=== PATIENT | male | born 1995 | race Caucasian/White ===

== ENCOUNTER 2024-02-15 17:18 | Inpatient (IN) | payer OTHER ==
--- NOTE | 2024-02-15 17:40 | ED ---
URI HPI - General Chief Complaint: Upper Respiratory Infection Stated Complaint: Cough Time Seen by Provider: 02/15/24 17:29 Source: patient, RN notes reviewed Mode of arrival: ambulatory Limitations: no limitations - History of Present Illness Initial Comments: This is a 28-year-old male who presents to the emergency department for a cough. States that he has had a cough since November with sputum production. About a month after he developed the cough, he started to develop pain in the right lower rib cage. This is only present when he moves, coughs, or sneezes. Denies any chest pain or shortness of breath. He went to check into [facility] today for heroin use and they advised he come to the emergency department for evaluation before proceeding with the rest of his intake. The sputum is described as brown with a very foul taste. MD Complaint: cough - Related Data Home Medications Medication Instructions Recorded Confirmed No Known Home Medications 02/15/24 02/15/24 Allergies Allergy/AdvReac Type Severity Reaction Status Date / Time No Known Allergies Allergy Verified 02/15/24 20:10 Review of Systems ROS Statement: Those systems with pertinent positive or pertinent negative responses have been documented in the HPI. ROS Other: All systems not noted in ROS Statement are negative. Past Medical History Additional Past Medical History / Comment(s): kidney stones Past Surgical History: No Surgical Hx Reported Past Drug Use History: Heroin General Exam Limitations: no limitations General appearance: alert, in no apparent distress Head exam: Present: atraumatic, normocephalic, normal inspection Respiratory exam: Present: normal lung sounds bilaterally. Absent: respiratory distress, wheezes, rales, rhonchi, stridor, chest wall tenderness Cardiovascular Exam: Present: regular rate, normal rhythm, normal heart sounds. Absent: systolic murmur, diastolic murmur, rubs, gallop, clicks Neurological exam: Present: alert, oriented X3, CN II-XII intact Psychiatric exam: Present: normal affect, normal mood Skin exam: Present: warm, dry, intact, normal color. Absent: rash Course Vital Signs 02/15/24 02/15/24 17:22 18:38 Temperature 98.2 F Pulse Rate 90 93 Respiratory 20 18 Rate Blood Pressure 137/79 130/93 O2 Sat by Pulse 98 99 Oximetry Medical Decision Making - Medical Decision Making This is a 28 year old male who presents to the emergency department for a cough. Was pt. sent in by a medical professional or institution? @ -[facility] Did you speak to anyone other than the patient for history? @ -No Did you review nursing and triage notes? @ -Yes, and I agree, it is accurate with regards to the patient's symptoms. Were old charts reviewed? @ -No Differential Diagnosis? @ -Differential Cough: Influenza, Covid, RSV, croup, allergic rhinitis, GERD, pneumonia, bronchitis, COPD, viral pharyngitis, streptococcal pharyngitis, this is not meant to be an all-inclusive list. EKG interpreted by me (3pts min.)? @ -Ordered, pending at admission X-rays interpreted by me (1pt min.)? @ -Chest x-ray and x-ray of the right rib cage obtained. My interpretation identifies a right lower lung opacity. CT interpreted by me (1pt min.)? @ -CT scan of the chest obtained. My interpretation identifies a right lower lobe consolidation. U/S interpreted by me (1pt. min.)? @ -Not obtained What testing was considered but not performed? (CT, X-rays, U/S, labs)? Why? @ -None What meds were considered but not given? Why? @ -None Did you discuss the management of the patient with other professionals? @ -Yes, Trip Nesbitt with [facility], who accepts the patient for admission. Did you reconcile home meds? @ -No Was smoking cessation discussed for >3mins.? @ -No Was critical care preformed (if so, how long)? @ -No Were there social determinants of health that impacted care today? How? (Homelessness, low income, unemployed, alcoholism, drug addiction, transportation, low edu. Level, literacy, decrease access to med. care, group home, rehab)? @ -Rehab, who sent the patient in for evaluation Was there de-escalation of care discussed even if they declined? (Discuss DNR or withdrawal of care, Hospice)? @ -No What co-morbidities impacted this encounter? (DM, HTN, Smoking, COPD, CAD, Ca ncer, CVA, Hep., AIDS, mental health diagnosis, sleep apnea, morbid obesity)? @ -Heroin use Was patient admitted / discharged? @ -Admitted. We initially obtained x-rays of the chest and right rib cage. This noted a right lower lung soft tissue opacity that should be further evaluated with CT imaging. There is consideration of pneumonia versus diaphragmatic hernia as well. Given these findings we proceeded with lab work and a CT scan. He was found to have leukocytosis of 15.[address] scan demonstrates a large consolidative abnormality in the medial right lower lobe with central areas of low density concerning for possible pulmonary abscess. Underlying neoplasm with necrosis cannot be excluded. Patient subsequently admitted to medicine for possible pulmonary abscess. Blood and sputum cultures ordered. He was started on vancomycin and Zosyn. Consult placed for pulmonology and infectious disease. Case discussed with ED attending Dr. Ybarra. Undiagnosed new problem with uncertain prognosis? @ -None Drug Therapy requiring intensive monitoring for toxicity (Heparin, Nitro, Insulin, Cardizem)? @ -None Were any procedures done? @ -None Diagnosis/symptom? @ -Pulmonary abscess Acute, or Chronic, or Acute on Chronic? @ -Acute Uncomplicated (without systemic symptoms) or Complicated (systemic symptoms)? @ -Uncomplicated Side effects of treatment? @ -None Exacerbation, Progression, or Severe Exacerbation] @ -Not applicable Poses a threat to life or bodily function? @ -Yes, can lead to septic shock and . - Lab Data Result diagrams: 02/15/24 18:25 02/15/24 18:25 Lab Results 02/15/24 02/15/24 02/15/24 Range/Units 17:53 18:25 18:25 WBC 15.8 H (3.8-10.6) k/uL RBC 4.40 (4.30-5.90) m/uL Hgb 12.3 L (13.0-17.5) gm/dL Hct 37.9 L (39.0-53.0) % MCV 86.2 (80.0-100.0) fL MCH 28.0 (25.0-35.0) pg MCHC 32.5 (31.0-37.0) g/dL RDW 12.8 (11.5-15.5) % Plt Count 596 H (150-450) k/uL MPV 7.0 Neutrophils % 86 % Lymphocytes % 9 % Monocytes % 4 % Eosinophils % 1 % Basophils % 0 % Neutrophils # 13.5 H (1.3-7.7) k/uL Lymphocytes # 1.4 (1.0-4.8) k/uL Monocytes # 0.6 (0-1.0) k/uL Eosinophils # 0.2 (0-0.7) k/uL Basophils # 0.0 (0-0.2) k/uL Sodium 137 (137-145) mmol/L Potassium 4.2 (3.5-5.1) mmol/L Chloride 98 (98-107) mmol/L Carbon Dioxide 30 (22-30) mmol/L Anion Gap 9 mmol/L BUN 7 L (9-20) mg/dL Creatinine 0.59 L (0.66-1.25) mg/dL Est GFR (CKD-EPI)AfAm >90 (>60 ml/min/1.73 sqM) Est GFR (CKD-EPI)NonAf >90 (>60 ml/min/1.73 sqM) Glucose 128 H (74-99) mg/dL Calcium 10.1 (8.4-10.2) mg/dL Total Bilirubin 0.4 (0.2-1.3) mg/dL AST 20 (17-59) U/L ALT 12 (4-49) U/L Alkaline Phosphatase 103 (38-126) U/L Total Protein 8.2 (6.3-8.2) g/dL Albumin 4.2 (3.5-5.0) g/dL Influenza Type A (PCR) Not Detected (Not Detectd) Influenza Type B (PCR) Not Detected (Not Detectd) RSV (PCR) Not Detected (Not Detectd) SARS-CoV-2 (PCR) Not Detected (Not Detectd) - Radiology Data Radiology results: report reviewed, image reviewed Disposition Clinical Impression: Pulmonary abscess Disposition: ADMITTED IP TO THIS HOSP
[2024-02-15] MEDS: ACETAMINOPHEN TAB 500 MG TAB PO STA (17:46)
[2024-02-15] MEDS: BENZONATATE 100 MG CAP PO STA (17:47)
[2024-02-15] MEDS: IBUPROFEN 800 MG TAB PO STA (17:47)
[2024-02-15] MEDS: LIDOCAINE 4% PATCH TOPICAL ONE (17:49)
--- NOTE | 2024-02-15 18:00 | XR ---
EXAMINATION TYPE: XR chest 2V DATE OF EXAM: 02/15/2024 5:55 PM CLINICAL INDICATION: Male, 28 years old with history of Cough; PHH COMPARISON: None TECHNIQUE: XR chest 2V Frontal view of the chest. FINDINGS: Lungs/Pleura:e soft tissue opacity projects over the right lower lung medially near the costophrenic angle posteriorly There is no evidence of pleural effusion, focal consolidation, or pneumothorax. Pulmonary vascularity: Unremarkable. Heart/mediastinum: Cardiomediastinal silhouette is unremarkable. Musculoskeletal: No acute osseous pathology. IMPRESSION: Soft tissue opacity projects over the right lower lung further evaluation recommended to exclude pneu monia versus diaphragmatic hernia.
--- NOTE | 2024-02-15 18:02 | XR ---
EXAMINATION TYPE: XR ribs RT DATE OF EXAM: 02/15/2024 5:55 PM CLINICAL INDICATION: Male, 28 years old with history of Right sided rib pain; PHH COMPARISON: Chest radiograph same day TECHNIQUE: XR ribs RT; Frontal and oblique views of the ribs with frontal chest radiograph. FINDINGS: The ribs have a normal appearance. No evidence of fracture. Overall, the lungs are clear. The cardiac silhouette is normal in size. The remaining osseous structures are intact. Redemonstration of soft tissue opacity projecting near the heart border on the right posteriorly on l ateral view. IMPRESSION: 1. No acute osseous pathology. 2. Right lower lung soft tissue opacity that should be further evaluated with CT imaging.
[2024-02-15] MEDS ORDERED: RX INFO: IV CONTRAST WAS GIVEN 1 EACH MISC MISCELLANE PRN (18:07)
[2024-02-15 18:32] LABS: Basophils % (A) 0 %; Eosinophils # (A) 0.2 k/uL (0-0.7); Eosinophils % (A) 1 %; HCT 37.9 % (39.0-53.0); HGB 12.3 gm/dL (13.0-17.5); Lymphocytes # (A) 1.4 k/uL (1.0-4.8); Lymphocytes % (A) 9 %; MCHC 32.5 g/dL (31.0-37.0); MCV 86.2 fL (80.0-100.0); Monocytes # (A) 0.6 k/uL (0-1.0); Monocytes % (A) 4 %; Neutrophils # (A) 13.5 k/uL (1.3-7.7); Neutrophils % (A) 86 %; Platelet Count 596 k/uL (150-450); RDW 12.8 % (11.5-15.5); WBC 15.8 k/uL (3.8-10.6)
[2024-02-15 18:45] LABS: ALT 12 U/L (4-49); AST 20 U/L (17-59); African American GFR (CKD) >90 (>60 ml/min/1.73 sqM); Albumin 4.2 g/dL (3.5-5.0); Alkaline Phosphatase 103 U/L (38-126); Anion Gap 9 mmol/L; Blood Urea Nitrogen 7 mg/dL (9-20); Calcium 10.1 mg/dL (8.4-10.2); Carbon Dioxide 30 mmol/L (22-30); Chloride 98 mmol/L (98-107); Glucose 128 mg/dL (74-99); Non-African American GFR(CKD) >90 (>60 ml/min/1.73 sqM); Potassium 4.2 mmol/L (3.5-5.1); Sodium 137 mmol/L (137-145); Total Bilirubin 0.4 mg/dL (0.2-1.3); Total Protein 8.2 g/dL (6.3-8.2)
--- NOTE | 2024-02-15 19:29 | CT ---
EXAMINATION TYPE: CT chest w con CT DLP: 177.7 mGycm, Automated exposure control for dose reduction was used. DATE OF EXAM: 02/15/2024 6:47 PM COMPARISON: Chest radiograph from same day. CLINICAL INDICATION:Male, 28 years old with history of Right sided rib pain, abnormal cxr; PHH, Rt si ded rib pain, abnormal CXR. TECHNIQUE: Multiple axial images were obtained through the chest. Sagittal and coronal reformats were created for review. Contrast used:80 cc mL of Isovue 300 with IV Contrast (None if empty) Oral contrast used: (None if empty) FINDINGS: LUNGS/ PLEURA: There is a consolidative finding seen within the medial right lower lobe with scattere d central areas of low density overall measuring approximately 6.2 x 4.7 x 6.7 cm. Vessels are seen c oursing throughout this finding. There is associated atelectasis. There are bronchograms are seen in superior consolidation. There is no significant invasion of the adjacent structures or associated agg ressive osseous changes. No pleural effusions or pneumothorax. AIRWAY: Patent and unremarkable. HEART: Size within normal limits. MEDIASTINUM: No gross evidence of adenopathy. VASCULATURE: No aortic aneurysm. MUSCULOSKELETAL: No acute osseous abnormalities SOFT TISSUES/LYMPH NODES: Unremarkable. LOWER NECK: No significant findings. UPPER ABDOMEN: Subcentimeter hypodense focus seen in the partially visualized liver too small to anthony acterize. IMPRESSION: Large consolidative abnormality seen in the medial right lower lobe with central areas of low density concerning for possible pulmonary abscess however underlying neoplasm with necrosis cannot be exclud ed. Correlate with any known history. Further workup recommended.
[2024-02-15] MEDS ORDERED: VANCOMYCIN IV PER PHARMACY 1 EACH MISC MISCELLANE PRN (19:37)
[2024-02-15] MEDS ORDERED: ACETAMINOPHEN TAB 325 MG TAB PO PRN (19:39)
[2024-02-15] MEDS ORDERED: ONDANSETRON 4 MG/2 ML VIAL IVP PRN (19:39)
[2024-02-15] MEDS ORDERED: IBUPROFEN 400 MG TAB PO PRN (19:39)
[2024-02-15] MEDS ORDERED: NALOXONE 0.4 MG/ML 1 ML VIAL IV PRN (19:39)
[2024-02-15] MEDS: PIPERACILLIN-TAZOBACTAM 3.375 GM in SODIUM CHLORIDE 0.9% 100 ML IVPB SCH (20:53)
[2024-02-15] MEDS: SODIUM CHLORIDE 0.9% 1,000 ML IV STA (20:55)
[2024-02-15] MEDS: MORPHINE SULFATE 4 MG/ML SYRINGE IV PRN (20:55)
[2024-02-15] MEDS: VANCOMYCIN 750 MG in SODIUM CHLORIDE 0.9% 250 ML IVPB SCH (21:57)
[2024-02-15] MEDS: SODIUM CHLORIDE 0.9% 1,000 ML IV SCH (21:57)
[2024-02-15] MEDS: KETOROLAC 15 MG/ML 1 ML VIAL IVP PRN (22:02)
[2024-02-15] MEDS: HYDROcodone/APAP 5-325MG 1 EACH TAB PO PRN (22:05)
[2024-02-15] MEDS: hydrOXYzine HCL 25 MG TAB PO PRN (23:05)
[2024-02-16 03:51] LABS: African American GFR (CKD) >90 (>60 ml/min/1.73 sqM); Non-African American GFR(CKD) >90 (>60 ml/min/1.73 sqM)
--- NOTE | 2024-02-16 05:06 | P.CNPUL ---
History of Present Illness Consult date: 02/16/24 Requesting physician: Keena Khanna Reason for consult: lung mass Chief complaint: Subacute cough, chest pain History of present illness: Patient is a 28-year-old male with past medical history significant for polysubstance abuse, alcoholism and ongoing tobacco use. Apparently, [facility], he was noted to have a cough which has been ongoing since November or December of this year. Cough is congested and productive, with brown to yellow/green sputum production. Denies hemoptysis. He has had some associated right-sided chest pain with coughing. Intermittent subjective fevers/chills. Chest CT done on arrival demonstrates a large consolidative masslike opacity within the medial right lower lobe with scattered areas of central low-density measuring 6.2 x 4.7 x 6.7 cm. Most concerning for pulmonary abscess. No invasion of adjacent structures. No pleural effusion or pneumothorax. Doubt neoplasm given the patient's age and clinical presentation. CBC: WBC count 15.8, hemoglobin 12.3, hematocrit 37.9, platelets 596. CMP is unremarkable. Currently on broad-spectrum antibiotics in the form of Zosyn and vancomycin. He does have history of polysubstance abuse, including heroin. States that he normally snorts the substance, denies needlesticks. He is currently sitting up in bed, on room air, in no acute respiratory distress. SpO2 is 99%. Afebrile. Vital signs are stable. Review of Systems REVIEW OF SYSTEMS: CONSTITUTIONAL: Denies any recent significant weight loss or weight gain. Mitts intermittent subjective fevers/chills, generalized malaise. EYES: Denies change in vision. EARS, NOSE, MOUTH, THROAT: Denies headaches, denies sore throat. CARDIOVASCULAR: Denies palpitations or syncopal episodes. RESPIRATORY: See HPI. GASTROINTESTINAL: Denies change in appetite, abdominal pain, nausea and vomiting, or diarrhea GENITOURINARY: Denies hematuria, denies infections. MUSKULOSKELETAL: Denies pain, denies swelling. INTEGUMENTARY: Denies rash, denies eczema. NEUROLOGICAL: Denies recent memory loss, no recent seizure activity. PSYCHIATRIC: Denies anxiety, denies depression. HEMATOLOGIC/LYMPHATIC: Denies anemia, denies enlarged lymph node Past Medical History Additional Past Medical History / Comment(s): kidney stones History of Any Multi-Drug Resistant Organisms: None Reported Past Surgical History: No Surgical Hx Reported Past Drug Use History: Heroin Medications and Allergies Home Medications Medication Instructions Recorded Confirmed Type No Known Home Medications 02/15/24 02/15/24 History Allergies Allergy/AdvReac Type Severity Reaction Status Date / Time No Known Allergies Allergy Verified 02/15/24 20:10 Physical Exam Vitals: Vital Signs Temp Pulse Pulse Resp BP BP Pulse Ox 02/15/24 21:54 98.3 F 87 17 132/91 99 02/15/24 21:21 77 16 133/87 98 02/15/24 18:38 93 18 130/93 99 02/15/24 17:22 98.2 F 90 20 137/79 98 Intake and Output 02/15/24 02/15/24 02/16/24 14:59 22:59 06:59 Other: Weight 45.359 kg GENERAL EXAM: Alert, 28-year-old white male, comfortable in no apparent distress. HEAD: Normocephalic and atraumatic EYES: Normal reaction of pupils, equal size. NOSE: Clear with pink turbinates. THROAT: No erythema or exudates. NECK: No masses, no JVD. CHEST: No chest wall deformity. LUNGS: Equal air entry with no crackles, wheeze, rhonchi or dullnes on room air.. No conversational dyspnea or accessory muscle use.. CVS: S1 and S2 normal with no audible murmur, regular rhythm. No extra heart sounds ABDOMEN: No hepatosplenomegaly, active bowel sounds, no guarding or rigidity. SPINE: No scoliosis or deformity SKIN: No rashes CENTRAL NERVOUS SYSTEM: No focal deficits, tone is normal in all 4 extremities. EXTREMITIES: There is no peripheral edema, clubbing, or cyanosis. Peripheral pulses are intact. Results - Laboratory Findings CBC and BMP: 02/15/24 18:25 02/16/24 02:31 Abnormal lab findings: Abnormal Labs 02/15/24 02/15/24 02/15/24 18:25 18:25 20:41 WBC 15.8 H Hgb 12.3 L Hct 37.9 L Plt Count 596 H Neutrophils # 13.5 H BUN 7 L Creatinine 0.59 L Glucose 128 H C-Reactive Protein 13.6 H 02/16/24 02:31 WBC Hgb Hct Plt Count Neutrophils # BUN Creatinine 0.60 L Glucose C-Reactive Protein - Diagnostic Findings Chest x-ray: image reviewed CT scan - chest: image reviewed Assessment and Plan Assessment: Large consolidative masslike opacity within the medial right lower lobe with scattered areas of central low-density measuring 6.2 x 4.7 x 6.7 cm. Most concerning for pulmonary abscess. Acute leukocytosis History of polysubstance abuse Alcoholism, reportedly drinks 1 pint every other day Ongoing tobacco dependence Plan: Patient's medication, labs, imaging reviewed Currently on room air Continue with broad-spectrum antibiotics in the form of Zosyn and vancomycin Blood and sputum cultures pending Procalcitonin level ordered Infectious disease consulted for antibiotic management Masslike density measuring greater than 6 cm, suspected to be pulmonary abscess, may require surgical intervention/drainage. Case will be discussed with Dr. Vasquez, further recommendations forthcoming In the meantime, infectious disease consulted for antibiotic management Monitor for alcohol withdrawal symptoms/CIWA Smoking cessation counseling performed I have personally seen and examined the patient, performed the documentation and the assessment and plan as written. Number of minutes spent on the visit:20 Time with Patient: Greater than 30
[2024-02-16] MEDS: PANTOPRAZOLE 40 MG/10 ML VIAL IV SCH (08:39)
[2024-02-16 10:31] LABS: Basophils % (A) 0 %; Eosinophils # (A) 0.1 k/uL (0-0.7); Eosinophils % (A) 1 %; HCT 35.7 % (39.0-53.0); HGB 11.4 gm/dL (13.0-17.5); Lymphocytes % (A) 16 %; MCH 28.3 pg (25.0-35.0); MCHC 31.9 g/dL (31.0-37.0); MCV 88.9 fL (80.0-100.0); Monocytes # (A) 0.8 k/uL (0-1.0); Monocytes % (A) 6 %; Neutrophils # (A) 9.9 k/uL (1.3-7.7); Neutrophils % (A) 77 %; Platelet Count 564 k/uL (150-450); RBC 4.02 m/uL (4.30-5.90); RDW 13.3 % (11.5-15.5); WBC 12.9 k/uL (3.8-10.6)
[2024-02-16 10:47] LABS: African American GFR (CKD) >90 (>60 ml/min/1.73 sqM); Anion Gap 5 mmol/L; Blood Urea Nitrogen 5 mg/dL (9-20); Calcium 9.7 mg/dL (8.4-10.2); Carbon Dioxide 23 mmol/L (22-30); Chloride 109 mmol/L (98-107); Glucose 104 mg/dL (74-99); Non-African American GFR(CKD) >90 (>60 ml/min/1.73 sqM); Potassium 4.3 mmol/L (3.5-5.1); Sodium 137 mmol/L (137-145)
[2024-02-16 12:21] VITALS: BP 128/86; PULSE 81; RESP 16; TEMP 98.2
[2024-02-16] MEDS: NICOTINE 21MG/24HR PATCH TRANSDERM SCH (12:33)
[2024-02-16] MEDS: AMPICILLIN-SULBACTAM 3 GM in SODIUM CHLORIDE 0.9% 100 ML IVPB SCH (12:36)
--- NOTE | 2024-02-16 12:56 | CA ---
Transthoracic Echo Report Name: Seng Morrell Age: 28 Gender: M : 1995 Exam Date: 02/16/2024 08:26 Exam Location: [facility] Ht (in): 65 Wt (lb): 100 Ordering Physician: Waylon Maddox Attending/Referring Phys: Office Clinician Peri Adams RDCS Procedure CPT: Indications: Hx IVDA; rule out valvular vegetation Cardiac Hx: Pt. refused half of the ECHO. Technical Quality: Fair Contrast 1: Total Dose (mL): Contrast 2: Total Dose (mL): MEASUREMENTS (Male / Female) Normal Values 2D ECHO LV Diastolic Diameter PLAX 4.2 cm 4.2 - 5.9 / 3.9 - 5.3 cm LV Systolic Diameter PLAX 3.2 cm IVS Diastolic Thickness 0.9 cm 0.6 - 1.0 / 0.6 - 0.9 cm LVPW Diastolic Thickness 0.9 cm 0.6 - 1.0 / 0.6 - 0.9 cm LV Relative Wall Thickness 0.4 RV Internal Dim ED PLAX 0.9 cm M-MODE Aortic Root Diameter MM 2.9 cm LA Systolic Diameter MM 2.1 cm LA Ao Ratio MM 0.7 AV Cusp Separation MM 1.4 cm FINDINGS Left Ventricle Left ventricular ejection fraction is estimated at 55-60 %. Left ventricular cavity size normal. Left ventricular wall thickness normal. No obvious regional wall motion abnormalities. Right Ventricle Normal right ventricular size and function. Right ventricular systolic pressure within normal limits. Right Atrium Normal right atrial size. Left Atrium Normal left atrial size. Mitral Valve Structurally normal mitral valve. Trace mitral regurgitation. Aortic Valve Trileaflet aortic valve. No aortic valve stenosis or regurgitation. Tricuspid Valve Structurally normal tricuspid valve. Trace tricuspid regurgitation. Pulmonic Valve Structurally normal pulmonic valve. No pulmonic regurgitation. No pulmonic stenosis. Pericardium No pericardial or pleural effusion. Aorta Normal size aortic root and proximal ascending aorta. CONCLUSIONS Left ventricular ejection fraction 55-60% Trace mitral regurgitation Trace tricuspid regurgitation No vegetation Patient noncompliant with full exam however no vegetation as noted Previewed by: Dr. Shan Choudhary DO (Electronically Signed) Final Date: 16 February 2024 12:55
[2024-02-16 13:12] VITALS: BMI 16.6
--- NOTE | 2024-02-16 13:42 | P.CONS ---
History of Present Illness - Reason for Consult Consult date: 02/16/24 Pulmonary abscess Requesting physician: Keena Khanna - Chief Complaint Right-sided chest pain and cough x days - History of Present Illness Patient is a 28-year-old male with a past medical history significant for kidney stones drug use alcoholism patient presented to the ER for evaluation of cough that has been going on since November 2023 patient also complaining of pain to the right lower rib cage that apparently has been getting worse over the last few days patient describes the pain to be sharp moderate to severe intensity worse with taking a deep breath and a cough without any radiation patient cough is also moderate intensity and bring up some sputum denies any hemoptysis denies high-grade fever did have some chills with the symptoms the patient has been evaluated on presentation the hospital the patient was afebrile he was not tachycardic hypotensive or hypoxic patient did have a white count of 15.8 with a left shift creatinine was normal electrolytes are normal influenza RSV COVID testing was negative patient did have a chest x-ray soft tissue opacity right lower lung subsequently did have a CT of the chest which did shows a large consolidative abnormality medial right lower lobe with central areas of low density concerning for possible pulmonary abscess patient was started on vancomycin and Zosyn admit to the hospital infectious disease was consulted for further management of antibiotic therapy patient did have an echocardiogram did not show any vegetation patient did have blood cultures which are currently pending Review of Systems Positive point and negatives has been mentioned in the HPI, complete review of systems was performed and all other systems are negative Past Medical History Additional Past Medical History / Comment(s): kidney stones History of Any Multi-Drug Resistant Organisms: None Reported Past Surgical History: No Surgical Hx Reported Past Drug Use History: Heroin Medications and Allergies Home Medications Medication Instructions Recorded Confirmed Type No Known Home Medications 02/15/24 02/15/24 History Allergies Allergy/AdvReac Type Severity Reaction Status Date / Time No Known Allergies Allergy Verified 02/15/24 20:10 Physical Exam Vitals: Vital Signs Temp Pulse Pulse Resp BP BP Pulse Ox 02/16/24 07:11 97.7 F 86 15 122/88 98 02/15/24 21:54 98.3 F 87 17 132/91 99 02/15/24 21:21 77 16 133/87 98 02/15/24 18:38 93 18 130/93 99 02/15/24 17:22 98.2 F 90 20 137/79 98 Intake and Output 02/15/24 02/16/24 02/16/24 22:59 06:59 14:59 Intake Total 118 Balance 118 Intake: Oral 118 Other: # Voids 3 Weight 45.359 kg GENERAL DESCRIPTION: Middle-aged male lying in bed, no distress. No tachypnea or accessory muscle of respiration use. HEENT: Shows Pallor , no scleral icterus. Oral mucous membrane is dry. No pharyngeal erythema or thrush NECK: Trachea central, no thyromegaly. LUNGS: Unlabored breathing. Decreased breath sound at the base HEART: S1, S2, regular rate and rhythm. No loud murmur ABDOMEN: Soft, no tenderness , guarding or rigidity, no organomegaly EXTREMITIES: No edema of feet. SKIN: No rash, no masses palpable. NEUROLOGICAL: The patient is awake, alert, oriented x3, mood and affect normal. Results CBC & Chem 7: 02/16/24 02:31 02/16/24 10:19 Labs: Abnormal Lab Results - Last 24 Hours (Table) 02/15/24 02/15/24 02/15/24 Range/Units 18:25 18:25 20:41 WBC 15.8 H (3.8-10.6) k/uL RBC (4.30-5.90) m/uL Hgb 12.3 L (13.0-17.5) gm/dL Hct 37.9 L (39.0-53.0) % Plt Count 596 H (150-450) k/uL Neutrophils # 13.5 H (1.3-7.7) k/uL Chloride (98-107) mmol/L BUN 7 L (9-20) mg/dL Creatinine 0.59 L (0.66-1.25) mg/dL Glucose 128 H (74-99) mg/dL C-Reactive Protein 13.6 H (<1.0) mg/dL 02/16/24 02/16/24 02/16/24 Range/Units 02:31 02:31 10:19 WBC 12.9 H (3.8-10.6) k/uL RBC 4.02 L (4.30-5.90) m/uL Hgb 11.4 L (13.0-17.5) gm/dL Hct 35.7 L (39.0-53.0) % Plt Count 564 H (150-450) k/uL Neutrophils # 9.9 H (1.3-7.7) k/uL Chloride 109 H (98-107) mmol/L BUN 5 L (9-20) mg/dL Creatinine 0.60 L 0.63 L (0.66-1.25) mg/dL Glucose 104 H (74-99) mg/dL C-Reactive Protein (<1.0) mg/dL Assessment and Plan (1) Pulmonary abscess Current Visit: Yes Status: Acute Code(s): J85.2 - ABSCESS OF LUNG WITHOUT PNEUMONIA SNOMED Code(s): 85765865 Plan: 1patient presented to hospital with increasing shortness of breath cough right- sided pleuritic chest pain in this patient who did have abnormal CT concerning for right-sided consolidation and possible abscess, patient did have a history of drug use blood cultures currently pending echocardiogram did not show any evidence of vegetation. 2patient benefit from bronchoscopy lavage and deep culture. 3we will continue patient on vancomycin however switch Zosyn to Unasyn to decrease risk of nephrotoxicity. We will follow on clinical condition and cultures to further adjust medication if needed Thank you for this consultation we will follow the patient along with you Dictation was produced using [employer] dictation software. please excuse any gramma tical, word or spelling errors. Time with Patient: Greater than 30
[2024-02-16] MEDS ORDERED: KETOROLAC 15 MG/ML 1 ML VIAL IVP SCH (15:30)
--- NOTE | 2024-02-16 15:38 | P.HPIM ---
History of Present Illness H&P Date: 02/16/24 This is a 28-year-old male who presented to the emergency department with increasing cough and upper respiratory concerns with foul-smelling production of sputum. Patient was at [facility] attempting to undergo intake appointment to attempt to receive Subutex or Suboxone although was sent here for further evaluation for this cough. Patient states that has been ongoing since November and has gone to hospitals previously although left as he felt his pain was not being controlled and nothing was being done. Patient lives in [place] although was up here in the area at [facility]. Patient being admitted with concerns of pulmonary abscess with pulmonary on consult as well as infectious disease. Patient denies any significant past medical history although is a smoker and vapes and also in the ER admitted to heroin use although denies IV drug abuse during exam and reports marijuana use as well. Patient was started on antibiotics and 2D echo was ordered. Initially on exam white count was elevated at 15.8 hemoglobin is 12.3, platelets are 596, sodium 137, potassium 4.2, creatinine 0.59, LFTs within normal limits, CRP elevated at 13.6 and procalcitonin is 0.14. COVID, influenza, RSV are all negative. Patient had a chest x-ray in the ER which shows soft tissue opacity projects over the right lower lung and also underwent CT chest which showed large consolidative abnormality seen in the medial right lower lobe with central areas of low density concerning for possible pulmonary abscess however underlying neoplasm with necrosis cannot be excluded. Patient also did undergo 2D echo which showed an EF of 55 to 60% with left ventricular cavity size being normal and no obvious regional wall motion abnormalities with a trace of mitral and tricuspid regurgitation and no vegetation noted. REVIEW OF SYSTEMS: CONSTITUTIONAL: No fever, no malaise, no fatigue. HEENT: No recent visual problems or hearing problems. Denied any sore throat. CARDIOVASCULAR: No chest pain, orthopnea, PND, no palpitations, no syncope. PULMONARY: Reports of shortness of breath with cough and foul-smelling sputum, no hemoptysis. GASTROINTESTINAL: No diarrhea, no nausea, no vomiting, no abdominal pain. NEUROLOGICAL: No headaches, no weakness, no numbness. HEMATOLOGICAL: Denies any bleeding or petechiae. GENITOURINARY: Denies any burning micturition, frequency, or urgency. MUSCULOSKELETAL/RHEUMATOLOGICAL: Denies any joint pain, swelling, or any muscle pain. ENDOCRINE: Denies any polyuria or polydipsia. The rest of the 14-point review of systems is negative. PHYSICAL EXAMINATION: GENERAL: The patient is alert and oriented x3, not in any acute distress. Well developed, thin built, unkempt, restless, anxious, appears to be in slight withdrawal with history of IV drug abuse with heroin HEENT: Pupils are round and equally reacting to light. EOMI. No scleral icterus. No conjunctival pallor. Normocephalic, atraumatic. No pharyngeal erythema. No thyromegaly. CARDIOVASCULAR: S1 and S2 present. No murmurs, rubs, or gallops. PULMONARY: Diminished breath sounds bilaterally otherwise chest is clear to auscultation, no wheezing or crackles. ABDOMEN: Soft, thin, nontender, nondistended, normoactive bowel sounds. No palpable organomegaly. MUSCULOSKELETAL: No joint swelling or deformity. EXTREMITIES: No cyanosis, clubbing, or pedal edema. NEUROLOGICAL: Gross neurological examination did not reveal any focal deficits. SKIN: No rashes. Assessment: Ongoing cough with foul-smelling sputum since November 2023 with concerns of a large masslike opacity in the right lower lobe unable to exclude pulmonary abscess Acute leukocytosis likely secondary to above History of polysubstance abuse with documented heroin per ER notes although patient denied on exam reporting he smokes and vapes and uses marijuana. Patient was at [facility] attempting to check-in for Suboxone and was sent here for further evaluation regarding this cough History of polysubstance abuse History of EtOH abuse Continued ongoing nicotine dependence with vaping as well Opiate seeking behavior Plan: Patient started on antibiotics with infectious disease on consult as well as pulmonary and evaluated for possible masslike consolidation with concerns of abscess Pulmonary evaluated with concerns of abscess and may benefit from bronchoscopy with lavage and cultures 2D echo was performed with no vegetation noted Monitor for any acute withdrawals including heroin and alcohol Patient was attempting to check in to [facility] for Suboxone although did not finish the intake appointment as nursing staff directed him to come to the ER for further evaluation. Patient lives in [place] and has no primary care provider Will follow-up with repeat labs in the a.m. and continue to monitor closely Strongly recommend evaluating for any paraphernalia including vapes and drug paraphernalia as patient was in denial of any IV drug use although it was documented as heroin use from the ER. UDS ordered and pending The impression and plan of care has been dictated by Juliette Chappell, Nurse Practitioner as directed. Dr. Carmen MD I have performed a history and examination and MDM of this patient, discussed the same with the dictator, and agree with the dictator's assessment and plan as written ,documented as a scribe. Based on total visit time, I have performed more than 50% of the visit. Past Medical History Additional Past Medical History / Comment(s): kidney stones History of Any Multi-Drug Resistant Organisms: None Reported Past Surgical History: No Surgical Hx Reported Past Drug Use History: Heroin Medications and Allergies Home Medications Medication Instructions Recorded Confirmed Type No Known Home Medications 02/15/24 02/15/24 History Allergies Allergy/AdvReac Type Severity Reaction Status Date / Time No Known Allergies Allergy Verified 02/15/24 20:10 Physical Exam Vitals: Vital Signs Temp Pulse Pulse Resp BP BP Pulse Ox 02/16/24 07:11 97.7 F 86 15 122/88 98 02/15/24 21:54 98.3 F 87 17 132/91 99 02/15/24 21:21 77 16 133/87 98 02/15/24 18:38 93 18 130/93 99 02/15/24 17:22 98.2 F 90 20 137/79 98 Intake and Output 02/15/24 02/16/24 02/16/24 22:59 06:59 14:59 Intake Total 118 Balance 118 Intake: Oral 118 Other: # Voids 3 Weight 45.359 kg Results CBC & Chem 7: 02/16/24 02:31 02/16/24 10:19 Labs: Abnormal Lab Results - Last 24 Hours (Table) 02/15/24 02/15/24 02/15/24 Range/Units 18:25 18:25 20:41 WBC 15.8 H (3.8-10.6) k/uL Hgb 12.3 L (13.0-17.5) gm/dL Hct 37.9 L (39.0-53.0) % Plt Count 596 H (150-450) k/uL Neutrophils # 13.5 H (1.3-7.7) k/uL BUN 7 L (9-20) mg/dL Creatinine 0.59 L (0.66-1.25) mg/dL Glucose 128 H (74-99) mg/dL C-Reactive Protein 13.6 H (<1.0) mg/dL 02/16/24 Range/Units 02:31 WBC (3.8-10.6) k/uL Hgb (13.0-17.5) gm/dL Hct (39.0-53.0) % Plt Count (150-450) k/uL Neutrophils # (1.3-7.7) k/uL BUN (9-20) mg/dL Creatinine 0.60 L (0.66-1.25) mg/dL Glucose (74-99) mg/dL C-Reactive Protein (<1.0) mg/dL Thrombosis Risk Factor Assmnt - Choose All That Apply Any of the Below Risk Factors Present?: No Other Risk Factors: No Other congenital or acquired thrombophilia - If yes, enter type in comment: No Thrombosis Risk Factor Assessment Level: Very Low Risk
--- NOTE | 2024-02-16 20:00 | P.DS ---
Providers Date of admission: 02/15/24 19:34 Expected date of discharge: 02/16/24 Attending physician: Marv Valera Consults: 02/15/24 19:39 Consult Physician Urgent Consulting Provider: Johnnie Vasquez Consult Reason/Comments: Pulmonary abscess Do you want consulting provider notified?: Yes Consult Physician Urgent Consulting Provider: Edmond Rodriguez Consult Reason/Comments: Pulmonary abscess Do you want consulting provider notified?: Yes Primary care physician: Stated None Hospital Course: Final diagnosis Ongoing cough with foul-smelling sputum since November 2023 with concerns of a large masslike opacity in the right lower lobe unable to exclude pulmonary abscess Acute leukocytosis likely secondary to above History of polysubstance abuse with documented heroin per ER notes although patient denied on exam reporting he smokes and vapes and uses marijuana. Patient was at [facility] attempting to check-in for Suboxone and was sent here for further evaluation regarding this cough History of polysubstance abuse History of EtOH abuse Continued ongoing nicotine dependence with vaping as well Opiate seeking behavior Discharge disposition Patient is leaving AGAINST MEDICAL ADVICE and fair condition with guarded prognosis to home. Patient will follow-up with his primary care provider in [place] in the outpatient setting upon discharge. Risk versus benefits including were discussed in detail with the patient and patient signed AMA paperwork.. Total time taken is greater than 35 minutes. Hospital course This is a 28-year-old male who presented to the emergency department with increasing cough and upper respiratory concerns with foul-smelling production of sputum. Patient was at [facility] attempting to undergo intake appointment to attempt to receive Subutex or Suboxone although was sent here for further evaluation for this cough. Patient states that has been ongoing since November and has gone to hospitals previously although left as he felt his pain was not being controlled and nothing was being done. Patient lives in [place] although was up here in the area at [facility]. Patient being admitted with concerns of pulmonary abscess with pulmonary on consult as well as infectious disease. Patient denies any significant past medical history although is a smoker and vapes and also in the ER admitted to heroin use although denies IV drug abuse during exam and reports marijuana use as well. Patient was started on antibiotics and 2D echo was ordered. Initially on exam white count was elevated at 15.8 hemoglobin is 12.3, platelets are 596, sodium 137, potassium 4.2, creatinine 0.59, LFTs within normal limits, CRP elevated at 13.6 and procalcitonin is 0.14. COVID, influenza, RSV are all negative. Patient had a chest x-ray in the ER which shows soft tissue opacity projects over the right lower lung and also underwent CT chest which showed large consolidative abnormality seen in the medial right lower lobe with central areas of low density concerning for possible pulmonary abscess however underlying neoplasm with necrosis cannot be excluded. Patient also did undergo 2D echo which showed an EF of 55 to 60% with left ventricular cavity size being normal and no obvious regional wall motion abnormalities with a trace of mitral and tricuspid regurgitation and no vegetation noted. Currently no reports of chest pain, shortness of breath, or palpitations. Patient is afebrile. No reports of nausea or vomiting and patient is tolerating diet. Patient reported to nursing staff that he will be leaving AGAINST MEDICAL ADVICE. Risk versus benefits were explained including and patient still willing to proceed to leave. AMA paperwork signed. Please refer to other documentation and other consultation notes for further HPI. PHYSICAL EXAMINATION: GENERAL: The patient is alert and oriented x3, not in any acute distress. Well developed, thin built, unkempt, restless, anxious, appears to be in slight wit hdrawal with history of IV drug abuse with heroin HEENT: Pupils are round and equally reacting to light. EOMI. No scleral icterus. No conjunctival pallor. Normocephalic, atraumatic. No pharyngeal erythema. No thyromegaly. CARDIOVASCULAR: S1 and S2 present. No murmurs, rubs, or gallops. PULMONARY: Diminished breath sounds bilaterally otherwise chest is clear to auscultation, no wheezing or crackles. ABDOMEN: Soft, thin, nontender, nondistended, normoactive bowel sounds. No palpable organomegaly. MUSCULOSKELETAL: No joint swelling or deformity. EXTREMITIES: No cyanosis, clubbing, or pedal edema. NEUROLOGICAL: Gross neurological examination did not reveal any focal deficits. SKIN: No rashes. Please refer to medication reconciliation sheet for a list of medications. The impression and plan of care has been dictated by Juliette Chappell, Nurse Practitioner as directed. Dr. Carmen MD I have performed a history and examination and MDM of this patient, discussed the same with the dictator, and agree with the dictator's assessment and plan as written ,documented as a scribe. Patient Condition at Discharge: Undetermined Plan - Discharge Summary Discharge Rx Participant: No New Discharge Prescriptions: No Action No Known Home Medications Discharge Medication List No Known Home Medications 02/15/24 [History] Follow up Appointment(s)/Referral(s): None,Stated [Primary Care Provider] - 1-2 days Activity/Diet/Wound Care/Special Instructions: pt to return to [facility] at time of d/c. nurse to call and give report and order ride for the pt. Discharge Disposition: LEFT AGAINST MEDICAL ADVICE
[2024-02-17] MEDS ORDERED: VANCOMYCIN TROUGH DUE 1 EACH MISC MISCELLANE ONE (03:30)
== END 2024-02-16 16:22 | disposition left against medical advice (07) | DRG 137 ==
LOC: EC 17:18 → 5NMEDONC 19:34
PROVIDERS: ADMIT Hospitalist; ATTEND Hospitalist
DX: J85.2 Abscess of lung without pneumonia (principal); F17.290 Nicotine dependence, other tobacco product, uncomplicated; Z76.5 Malingerer [conscious simulation]; R79.82 Elevated C-reactive protein (CRP); D72.829 Elevated white blood cell count, unspecified; F19.10 Other psychoactive substance abuse, uncomplicated; Z20.822 Contact with and (suspected) exposure to COVID-19; I08.1 Rheumatic disorders of both mitral and tricuspid valves; F10.239 Alcohol dependence with withdrawal, unspecified; Z87.442 Personal history of urinary calculi; Z28.310 Unvaccinated for COVID-19
CPT/HCPCS: 96365; 96375; 99285